=== PATIENT | male | born 2000 | race Caucasian/White ===

== ENCOUNTER 2022-04-10 20:37 | Emergency (ER) | payer SELFPAY ==
[~2022-04-10] VITALS: Ht 177.8 cm; Wt 67.0 kg
[2022-04-10 20:42] VITALS: BP 135/80
[2022-04-10] MEDS ORDERED: ONDANSETRON 4MG ODT PO ONE (23:15)
[2022-04-10] MEDS ORDERED: FAMOTIDINE 20MG TABLET PO ONE (23:15)
[2022-04-10] MEDS ORDERED: MAGNESIUM/ALUMINUM HYDROXIDE/SIMETHICONE 30ML UDC PO ONE (23:15)
[2022-04-11 00:02] LABS: BASOPHILS % 0.2 % (0.0-2.0); EOSINOPHILS % 0.1 % (0.0-5.0); HEMATOCRIT. 46.2 % (42.0-52.0); HEMOGLOBIN. 15.8 g/dL (14.0-18.0); LYMPHOCYTES % 18.2 % (20.0-50.0); MEAN CORPUSCULAR HEMOGLOBIN 29.3 pg (28.0-32.0); MEAN PLATELET VOLUME 9.6 fl (7.4-10.4); MONOCYTES % 5.1 % (2.0-8.0); NEUTROPHILS % 76.4 % (40.0-76.0); PLATELET 294 x1000/uL (130-400); RED BLOOD CELL COUNT 5.38 mill/uL (4.7-6.1); RED CELL DISTRIBUTION WIDTH 13.8 % (11.6-14.6)
[2022-04-11 00:25] LABS: CHLORIDE 104 mEq/L (98-107)
[2022-04-11 00:34] LABS: CREATINE KINASE 97 IU/L (39-308)
[2022-04-11] MEDS ORDERED: MAGNESIUM/ALUMINUM HYDROXIDE/SIMETHICONE 30ML UDC PO NR (02:45)
[2022-04-11] MEDS ORDERED: FAMOTIDINE 20MG TABLET PO NR (02:45)
[2022-04-11] MEDS ORDERED: ONDANSETRON 4MG ODT PO NR (02:45)
[2022-04-11 03:17] LABS: CLARITY URINE CLEAR (CLEAR); COLOR URINE YELLOW (YELLOW); KETONES URINE 3+ (NEGATIVE); LEUKOCYTE ESTERASE URINE NEGATIVE (NEGATIVE); NITRITE URINE NEGATIVE (NEGATIVE); OCCULT BLOOD URINE NEGATIVE (NEGATIVE); PROTEIN URINE TRACE (NEGATIVE); SPECIFIC GRAVITY URINE 1.026 (1.005-1.030); UROBILINOGEN URINE 0.2 E.U./dL (0.2-1.0)
[2022-04-11] MEDS ORDERED: ONDA4TAB50 PO (03:54)
[2022-04-11] MEDS ORDERED: OMEP20CA14 MT (03:54)
[2022-04-11] MEDS ORDERED: ACET-2708 PO (03:54)
== END 2022-04-11 04:35 | disposition home or self-care (01) ==
LOC: ER 20:37
DX: K29.00 Acute gastritis without bleeding (principal)
CPT/HCPCS: 36415; 71045; 80053; 81003; 82550; 85025; 99284; Q0162